=== PATIENT | male | born 1980 | race Caucasian/White ===

== ENCOUNTER 2019-11-13 14:15 | Emergency (ER) | payer OTHER, BC ==
[~2019-11-13] VITALS: Ht 180.3 cm; Wt 90.0 kg
[~2019-11-13 14:15] MED LIST: DIL100C PO; TOP100T PO
[2019-11-13 14:18] VITALS: BP 142/88
[2019-11-13] MEDS ORDERED: CEPH-572 PO (15:25)
[2019-11-13] MEDS ORDERED: HYDROcodone/acetaminophen 5mg/325mg tablet PO ONE (15:25)
[2019-11-13] MEDS ORDERED: HYDR-3965 PO (15:30)
== END 2019-11-13 16:01 | disposition home or self-care (01) ==
LOC: ER 14:16
DX: S40.011A Contusion of right shoulder, initial encounter (principal); Z98.890 Other specified postprocedural states; Z79.899 Other long term (current) drug therapy; W01.0XXA Fall on same level from slipping, tripping and stumbling without subsequent striking against object, initial encounter; Y93.89 Activity, other specified; Y92.69 Other specified industrial and construction area as the place of occurrence of the external cause; Y99.9 Unspecified external cause status
CPT/HCPCS: 73030; 99284